=== PATIENT | male | born 1955 | race Caucasian/White ===

== ENCOUNTER 2019-12-08 05:40 | Inpatient (IN) | payer OTHER ==
[~2019-12-08] VITALS: Ht 152.4 cm; Wt 76.4 kg
--- NOTE | ~2019-12-08 | CON ---
[address] [address] CONSULTATION Name: PAMELA VILLARREAL Room: [address] IN M.R.#: [id number] Admission: 12/08/19 Attend Phys: Carole Sy Discharge: Date of : 53 Report #: [id number] THIS REPORT FOR: //name// CC: Carole Mancia This is the consultation obtained by Dr. Hayden for end-stage renal disease and provide dialysis during the hospital stay. HISTORY OF PRESENT ILLNESS: The patient is a 64-year-old gentleman who has end-stage renal disease, he was on hemodialysis at the [facility] under the care of Dr. Lomeli. The patient was admitted today with a chief complaint of hematemesis and then bright red blood per rectum. His blood pressure has remained stable. He denies any abdominal pain, no fevers, no chills, no cough or phlegm. The patient had similar history recently a few months ago and at that time GI workup was essentially negative. We have been consulted to provide his dialysis during this hospital stay. PAST MEDICAL HISTORY: End-stage renal disease, on hemodialysis on a Friday, Friday, Friday schedule; history of diabetes; history of hepatitis C; diskectomy; history of cardiac stenting in the past; defibrillator. He has history of COPD; hypertension; GI bleeds and a left upper arm fistula. HOME MEDICATIONS: Reviewed. He is on PhosLo, Protonix, pravastatin, nitroglycerin, Coreg. PERSONAL, SOCIAL AND FAMILY HISTORY: He denies any significant alcohol intake. No family history of ESRD. No smoking reported. PHYSICAL EXAMINATION: VITAL SIGNS: His blood pressure is 107/71, pulse rate is 87. He is afebrile. LUNGS: Diminished, but clear. GENERAL: He is awake, he is alert, answering all questions appropriately. He has not had any episodes of hematemesis since he came to the hospital. ABDOMEN: Soft, nontender and nondistended. EXTREMITIES: Showed no pedal edema. Left upper arm brachiocephalic fistula is well developed with good bruit and thrills. LABORATORY DATA: White count is 10.5 and hemoglobin is 11.5. Metabolic panel: Potassium is 4.9, BUN 53, creatinine 10.4, calcium 7.2, albumin 2.6. ASSESSMENT: 1. End-stage renal disease. 2. Dialysis on a Friday, Friday, Friday schedule. 3. Diabetes mellitus. 4. History of gastrointestinal bleed with previous history few months ago. 5. History [place] [address] CONSULTATION Name: PAMELA VILLARREAL Room: [address] IN M.R.#: [id number] Admission: 12/08/19 Attend Phys: Carole Sy Discharge: Date of : 53 Report #: [id number] 6. Vascular disease. PLAN: 1. End-stage renal disease. The patient did get a full treatment on Friday. He might be going for an endoscopy today. He is n.p.o. for the same. We will try to time our dialysis around that. 2. However, if we cannot get the patient on time based on his other procedures today, we will dialyze him tomorrow morning. There is no urgent need for dialysis today. 3. Close monitoring of hemoglobin levels. Transfuse as needed. 4. Renal diet. 5. Avoid all nephrotoxic medications. 6. Lower the infusion rate of normal saline to 50 mL an hour and stop at post-endoscopy. Thank you for the consultation. By: 1115 [id number] Myers MD /natalia
[~2019-12-08 05:40] MED LIST: AUGMENTIN 500-1 EACH PO; CARAFATE 1 GM TA1 G1 PO; CARDURA4 MG PO; CARVEDILOL12.5 MG PO; DOXYCYCLINE; DOXYCYCLINE 10100 MG PO; FENTANYL PA25 MCG/HR TRANSDERM; HYDRALAZINE 2525 MG PO; IMDUR 30 MG TAB30 M1 PO; KLOR-CON 1010 MEQ PO; LASIX 40 MG TAB40 M2 PO; NITROGLYCERIN0.4 MG SUBLING; PRAVACHOL20 MG PO; PREDNISONE; PROTONIX40 M1 PO; XANAX 0.25 MG0.25 MG PO
[2019-12-08 05:44] VITALS: BP 114/67
[2019-12-08 06:03] LABS: HEMATOCRIT 33.8 % (42.0-52.0); HEMOGLOBIN 11.5 gm/dL (14.0-18.0); MCV 88.4 fL (80.0-100.0); NUCLEATED RBCS 0 /100WBC; PLATELET COUNT* 132 thou/uL (150-400); RBC 3.82 mil/uL (4.50-6.00); RDW-CV 14.9 % (10.5-14.5); WBC 10.5 thou/uL (4.0-11.0)
[2019-12-08] MEDS ORDERED: CARDIZEM SR 60M60 MG PO (06:14)
[2019-12-08 06:15] LABS: ANION GAP 8 mmol/L (7-16); BUN 53 mg/dL (7-18); CALCIUM 7.2 mg/dL (8.5-10.1); CHLORIDE 97 mmol/L (98-107); CO2 31 mmol/L (21-32); CREATININE 10.4 mg/dL (0.6-1.3); GLUCOSE 189 mg/dL (70-99); POTASSIUM 4.9 mmol/L (3.5-5.1); SODIUM 136 mmol/L (136-145)
[2019-12-08] MEDS ORDERED: CALCIUM ACETAT667 MG PO (06:15)
[2019-12-08 06:17] LABS: INR 1.1; PROTIME 11.2 Seconds (9.20-11.50)
[2019-12-08 06:31] LABS: ALBUMIN 2.6 g/dL (3.4-5.0); ALKALINE PHOSPHATASE 74 U/L (46-116); NT-PRO BRAIN NAT PEPTIDE > 35000 pg/mL (<300); SGOT 8 U/L (15-37); SGPT 16 U/L (30-65); TOTAL BILIRUBIN 0.4 mg/dL (<0.1-1.0); TOTAL PROTEIN 6.9 g/dL (6.4-8.2)
[2019-12-08 06:56] LABS: ABSOLUTE EOSINOPHILS 0.2 thou/uL (0.0-0.7); ABSOLUTE LYMPHOCYTES 1.6 thou/uL (0.8-5.3); ABSOLUTE MONOCYTES 0.4 thou/uL (0.0-1.2); ABSOLUTE NEUTROPHILS 8.3 thou/uL (1.6-8.1); ANISOCYTOSIS 1+; PLATELET ESTIMATE DECREASED
[2019-12-08 06:57] LABS: OVALOCYTES 1+; POIKILOCYTOSIS 1+
[2019-12-08 08:00] VITALS: BP 107/64
[2019-12-08 08:03] VITALS: BP 107/71
--- NOTE | 2019-12-08 10:23 | EKG ---
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[place] : 1955 Requested By: Luz Lindsey Order Number: [id number] MD: Saulo Jacob Measurements Intervals [place] Rate: 89 P: -47 TX: 156 QRS: -69 QRSD: 141 T: 110 QT: 416 QTc: 507 Interpretive Statements Sinus rhythm with mobitz I av block Atrial premature complexes Right bundle branch block LVH with secondary repolarization abnormality Inferior infarct, old Anterior infarct, old Baseline wander in lead(s) V3 Electronically Signed On 12-08-2019 10:22:36 CORPORATE DEVELOPMENT INTERN by Saulo Jacob [email or web address] <ELECTRONICALLY SIGNED> By: Saulo Jacob MD, [facility] 12/08/19 1022 0546 [id number] Saulo Jacob MD, [facility] /EPI
--- NOTE | 2019-12-08 10:58 | NUR ---
CM ASSESSMENT: VISITED WITH PT AND IN ROOM. PT LIVES HOME WITH HIS . INDEPENDENT WITH ALL ADLS,NO DME. DRIVES AND NO FINANCIAL CONCERNS. CM WILL FOLLOW UP IF NEEDED
[2019-12-08 11:31] VITALS: BP 114/54
[2019-12-08 12:48] LABS: HEMATOCRIT 29.1 % (42.0-52.0); HEMOGLOBIN 9.9 gm/dL (14.0-18.0)
--- NOTE | 2019-12-08 14:09 | NUR ---
pt admitted on tele floor from er. report received from er nurse. pt is aox4, sr bbb on monitoring tech. on ra. o2 saturation is 96%. po medication given as ordered. pt refused the cardizem pill stating that he has taken this pill the night before. pt states that he has been vomiting blood and having bloody bowel movement since 0200 am this am. iv fluid ns at 100 cc per hour started as ordered. pt complains of vomiting, iv zofran given. scopalamine patch applied behind right earlobe as ordered. iv protonix started as ordered. call light at reach. pt is up ad gisela. consent for egd completed per pt. gi and renal on board. pt to be dialysed the next day per renal physician. will continue to monitor pt
[2019-12-08 15:40] LABS: HEMATOCRIT 27.4 % (42.0-52.0); HEMOGLOBIN 9.2 gm/dL (14.0-18.0); MCH 29.8 pg (26.0-34.0); MCHC 33.7 g/dL (28.0-37.0); MCV 88.4 fL (80.0-100.0); MPV 9.6 fl. (7.2-11.1); RBC 3.1 mil/uL (4.50-6.00); RDW-CV 14.5 % (10.5-14.5); WBC 9.2 thou/uL (4.0-11.0)
[2019-12-08 15:54] LABS: CALCIUM 7.4 mg/dL (8.5-10.1); CREATININE 11.2 mg/dL (0.6-1.3); POTASSIUM 5.7 mmol/L (3.5-5.1)
--- NOTE | 2019-12-08 16:16 | NUR ---
PT WENT FOR AN EGD THIS AFTERNOON.
[2019-12-08 18:37] VITALS: BP 91/50
--- NOTE | 2019-12-08 18:38 | NUR ---
PT BACK FROM EGD AT 1825 ACCOMPANIED BY PACU NURSE. PT IS AOX4. VS TAKEN. BP 91/50 HR 95. PT PLACED BACK ON SUPPORT SERVICE TECH. PROTONIX DRIP INFUSING ORDERED. IV NS INFUSING. CLEAR LIQUID DIET GIVEN. NO INSULIN PER SLIDING SCALE. PT RESTING IN BED. CALL LIGHT AT REACH. AT BEDSIDE. WILL CONTINUE TO MONITOR
[2019-12-08 20:02] VITALS: BP 97/55
[2019-12-08 20:05] LABS: HEMATOCRIT 25.5 % (42.0-52.0); HEMOGLOBIN 8.7 gm/dL (14.0-18.0)
[2019-12-09] VITALS (7 sets, daily range): BP systolic 98–135; BP diastolic 52–79
[2019-12-09 05:43] LABS: HEMATOCRIT 23.1 % (42.0-52.0); HEMOGLOBIN 7.9 gm/dL (14.0-18.0); MCH 30.1 pg (26.0-34.0); MCHC 34.1 g/dL (28.0-37.0); MCV 88.1 fL (80.0-100.0); MPV 9.4 fl. (7.2-11.1); RBC 2.62 mil/uL (4.50-6.00); RDW-CV 14.9 % (10.5-14.5); WBC 10.2 thou/uL (4.0-11.0)
[2019-12-09 06:09] LABS: ALBUMIN 2.5 g/dL (3.4-5.0); CALCIUM 7.8 mg/dL (8.5-10.1); CREATININE 11.8 mg/dL (0.6-1.3); MAGNESIUM 1.6 mg/dL (1.8-2.4); TOTAL BILIRUBIN 0.4 mg/dL (<0.1-1.0)
--- NOTE | 2019-12-09 08:31 | NUR ---
PT IS ABLE TO COMMUNICATE HIS NEEDS TO STAFF EFFECTIVELY, BUT HAS BEEN VERY TIRED. HE HAS DENIED THE NEED FOR PAIN MEDICATION UP TO THIS TIME. HE IS STILL HAVING SOME BLOODY BMs UP TO THIS TIME. HE IS CURRENTLY FOLLOWING A // SCHEDULE FOR RECEIVING HEMODIALYSIS AND, HE MISSED HAVING A RUN YESTERDAY, IS TENTATIVELY SCHEDULED TO HAVE ONE TODAY. FEELINGS OF NAUSEA HAVE SUBSIDED OVERNIGHT; CURRENTLY ON A CLEAR LIQUID DIET. LIKELY REPEAT EGD ON FRIDAY THIS WEEK.
[2019-12-09 10:09] LABS: HEPATITIS B SURFACE AG Negative (Negative)
--- NOTE | 2019-12-09 10:10 | NUR ---
ASSUMED CARE OF PT THIS AM AROUND 0715- BODY CLEANER IN PLACE ORDERED, TRACING SR- UPON ASSESSMENT PT NOTED TO BE RESTING IN BED, TIRED/WITHDRAWN- PT A&O X4- CONTINENT OF B/B, OLIGURIA NOTED WITH DIALYSIS- SBA WITH TRANSFERS- LCTA, RESP EVEN AND UP-LWLCLJN-NFG, O2 SAT 91% ON LV-SYV-[id number] COUGH NOTED- ABD SOFT/ROUND/NON-TENDER, BS X 4 QUADS- UNKNOWN LAST BM- IV NOTED TO RIGHT FA AND RIGHT HAND INTACT, PROTONIX INFUSSING PRESCIBED- LEFT UE FISTULA NOTED WITH POSTIVE BRUIT/THRILL- DIALYSIS PLANNED FOR THIS SHIFT- CLEAR LIQUIDS IN PLACE ORDERED, BS MONITORED ORDERED-PT DENEIS ANY C/O PAIN- CALL LIGHT AND PERSONAL BELONGINGS WITH IN REACH- HOURLY ROUNDS IN PLACE R/T SAFETY-NEEDS- ALL NEEDS MET AT THIS TIME-WCTM
--- NOTE | 2019-12-09 13:53 | NUR ---
CONTINUE TO FOLLOW, PT GOES TO [facility] FOR DIALYSIS. CALLED AND SPOKE WITH SIM THERE, WILL NEED NOTIFIED AT UT AND FLOW SHEETS/DC INFO FAXED TO THEM. SHE ASKED FOR UPDATE, WILL SEND. PT PLANS TO RETURN HOME AT [facility] [phone] FAX [phone]
--- NOTE | 2019-12-09 14:22 | NUR ---
FAXED CLINICAL UPDATES TO [facility] [phone]; [phone]. CONFIRMED WITH SIM AT [facility] THAT SHE RECEIVED THE UPDATE.
[2019-12-09 16:10] LABS: PCO2 31.7 mmHg (35.0-45.0); PO2 80.7 mmHg (75.0-100.0); pH 7.528 (7.340-7.450)
[2019-12-09 16:53] LABS: HEMATOCRIT 19.2 % (42.0-52.0)
[2019-12-09 16:54] LABS: HEMOGLOBIN 6.6 gm/dL (14.0-18.0)
[2019-12-10 00:02] VITALS: BP 134/74
[2019-12-10 00:30] LABS: HEMATOCRIT 22.1 % (42.0-52.0); HEMOGLOBIN 7.6 gm/dL (14.0-18.0)
[2019-12-10 04:32] VITALS: BP 143/78
[2019-12-10 05:24] LABS: HEMATOCRIT 21.7 % (42.0-52.0); HEMOGLOBIN 7.5 gm/dL (14.0-18.0); MCH 30.1 pg (26.0-34.0); MCHC 34.6 g/dL (28.0-37.0); MCV 87.2 fL (80.0-100.0); MPV 8.8 fl. (7.2-11.1); RBC 2.49 mil/uL (4.50-6.00); RDW-CV 14.5 % (10.5-14.5); WBC 6.3 thou/uL (4.0-11.0)
[2019-12-10 05:33] LABS: ALBUMIN 2.5 g/dL (3.4-5.0); CALCIUM 7.7 mg/dL (8.5-10.1); POTASSIUM 4.4 mmol/L (3.5-5.1)
--- NOTE | 2019-12-10 05:37 | NUR ---
PT IS ABLE TO COMMUNICATE HIS NEEDS TO STAFF WITH MINOR DIFFICULTY; HE HAS BEEN SOMEWHAT CONFUSED AT TIMES DURING THIS SHIFT. HE HAS BEEN MORE CONVERSANT AND ALERT AFTER RECEIVING BLOOD. AT LAST CHECK, HGB WAS ABOVE 7.0, SO PT HAS RECEIVED ONE UNIT OF BLOOD THIS SHIFT, UP TO THIS TIME. HE HAS BEEN NPO SINCE MIDNIGHT FOR A POSSIBLE EGD LATER TODAY.
[2019-12-10 05:49] LABS: CALCIUM 7.7 mg/dL (8.5-10.1); MAGNESIUM 1.6 mg/dL (1.8-2.4); POTASSIUM 4.3 mmol/L (3.5-5.1)
[2019-12-10 05:52] LABS: CREATININE 7.8 mg/dL (0.6-1.3)
[2019-12-10 05:53] LABS: CREATININE 7.9 mg/dL (0.6-1.3)
[2019-12-10 08:00] VITALS: BP 125/68
--- NOTE | 2019-12-10 10:32 | NUR ---
ASSUMED PT CARE REPORT RECEIVED FROM NURSE PT IS AOX4 , AT BEDSIDE. PT VS ARE STABLE. ON RA. O2 SATURATION IS 97%. RIGHT FOREARM IV LINE PATENT. PROTONIX INFUSING AT 20 CC PER HOUR ORDERED. NEW BAG REPLACED THIS MORNING. SCOPALAMINE PATCH IN PLACE BEHIND RIGHT EAR. PT DENIES PAIN. NO BOWEL MOVEMENT THIS AM. PT UP WITH STAND BY ASSIST TO THE RESTROOM TO URINATE. HGB AT 7.5 THIS AM. NO ACTIVE BLLEDING NOTICED. ACCUCHECK. NO INSULIN. PT IS NPO . MORNING MEDICINE HELD PER NURSE. PT IS TO HAVE EGD DONE THIS AM. EGD CONSENT SIGNED AT BEDSIDE. PT DAUGHTER IS THE DPOA AND FILLED DPOA FORM AT BEDSIDE. FORM PLACED IN CHART. [facility] BY OR NURSE. WILL CONTINUE TO MONITOR
--- NOTE | 2019-12-10 10:48 | NUR ---
DIALYSIS NURSE CALLED WHILE PT OUT FOR EGD. DIALYSIS NURSE NOTIFIED THAT PT IS HAVING EGD DONE NOW AND WILL BE CONTACTED ONCE PT IS DONE
--- NOTE | 2019-12-10 11:08 | EKG ---
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1955 Requested By: Nirmal Cheng Order Number: [id number] MD: Saulo Jacob Measurements Intervals [place] Rate: 94 P: 0 UT: 144 QRS: -62 QRSD: 145 T: 95 QT: 411 QTc: 515 Interpretive Statements atrial fibrillation Right bundle branch block LVH with secondary repolarization abnormality Inferior infarct, old Baseline wander in lead(s) V2 Compared to ECG 12/08/2019 05:46:16 atrial fibrillation noted Second-degree AV block, Mobitz type I (Wenckebach) no longer present Myocardial infarct finding still present Electronically Signed On 12-10-2019 11:07:42 CAR MOVER by Saulo Jacob [email or web address] <ELECTRONICALLY SIGNED> By: Saulo Jacob MD, FAC 12/10/19 1107 1609 1609 Saulo Jacob MD, [facility] /EPI
[2019-12-10 11:55] VITALS: BP 125/68
--- NOTE | 2019-12-10 15:08 | NUR ---
CONTINUE TO FOLLOW, NOTARIZED DPOA TODAY, ON CHART. AGENT IS DTR ONLY. COPIES GIVEN TO HER. NO DC TODAY. WILL NEED TO CONTACT [facility] AND FAX DC INFO WITH MEDS AND DIALYSIS FLOW SHEETS TO THEM. [facility] [phone] FAX [phone]
--- NOTE | 2019-12-10 15:27 | NUR ---
pt went straight from PACU to dialysis. pt got to eat lunch. no insulin needed per sliding scale. see chart for accucheck result. pt finished dialysis at 1520. report received from dialysis nurse who reports stable bp of 120/ 65 at the end of dialysis treatment. pt presently in his room sitting at bedside. no complaint. protonix drip infusing as ordered. call light at reach. will continue to monitor
[2019-12-10 20:00] VITALS: BP 127/60
[2019-12-11] VITALS (8 sets, daily range): BP systolic 111–135; BP diastolic 57–72
[2019-12-11 05:08] LABS: HEMATOCRIT 20.2 % (42.0-52.0)
[2019-12-11 05:20] LABS: CALCIUM 7.1 mg/dL (8.5-10.1); MAGNESIUM 1.7 mg/dL (1.8-2.4); POTASSIUM 3.8 mmol/L (3.5-5.1)
--- NOTE | 2019-12-11 05:41 | NUR ---
VITALS STABLE, AFEBRILE. NO BM/N/V. DENIES PAIN. PT SLEPT THROUGH THE NIGHT. CALL LIGHT WITHIN REACH. WILL CONTINUE MONITORING.
[2019-12-11 05:51] LABS: CREATININE 6.6 mg/dL (0.6-1.3)
[2019-12-11] MEDS ORDERED: IRON325 M1 PO (09:39)
[2019-12-11] MEDS ORDERED: PROTONIX40 M1 PO (09:39)
[2019-12-11] MEDS ORDERED: COLACE100 MG PO (09:39)
--- NOTE | 2019-12-11 11:25 | NUR ---
ASSUMED PT CARE REPORT RECEIVED FORM NURSE. PT IS AOX4. ON RA. O2 SATURATION IS 95%. VSS. HGB 7.0. ORDER TO INFUSE BLOOD IF HGB LESS 7.0. WILL AWAIT FOR H&H RESULT THIS AM. PATIENT CURRENTLY IN ROOM IN CHAIR. NO COMPLAINT. DENIES PAIN, N.V. MORNING MEDICATIONS GIVEN. TRACING AFIB ON HOME HEALTH ADMINISTRATOR. HEART RATE CONTROLLED IN THE 90s. PT HAD AN EPISODE OF 16 RUNS OF VTACH THIS AM AT SHIFT CHANGE. PT REMAINS ASYMPTOMATIC DURING THE EPISODE. HOSPITALIST MADE AWARE. ACCUCHECK BEFORE BREAKFAST. NO INSULIN GIVEN. CALL LIGHT AT REACH. WILL CONTINUE TO MONITOR PT
[2019-12-11 12:18] LABS: HEMATOCRIT 22.3 % (42.0-52.0); HEMOGLOBIN 7.6 gm/dL (14.0-18.0)
--- NOTE | 2019-12-11 12:43 | NUR ---
HGB 7.6 PT WILL BE ABLE TO DISCHARGE PER DR ORDER SINCE HGB IS NOT BELOW 7.0.
[2019-12-11 14:09] LABS: HCV QUANT BY PCR 9230 IU/mL (())
--- NOTE | 2019-12-11 14:28 | NUR ---
PT LEFT FLOOR AT 1400 ACCOMPANIED BY NURSING STAFF AND . ON RA. DISCHARGE INSTRUCTION GIVEN. PT INSTRUCTED TO TAKE PROTONIX BID INSTEAD OF DAILY. PT ALSO INSTRUCTED TO AVOID TAKING NSAIDS AND ASPIRIN. IV LINE REMOVED. HEART MONITOR RETRIEVED.
--- NOTE | 2019-12-12 09:28 | CON ---
[address] [address] CONSULTATION Name: PHILPAMELA Room: [address] IN M.R.#: [id number] Admission: 12/08/19 Attend Phys: Carole Sy Discharge: 12/11/19 Date of : 53 Report #: [id number] THIS REPORT FOR: //name// CC: Carole Mancia DICTATED BY: Salina GUEVARA DATE OF SERVICE: 12/08/2019 The patient does not have a PCP. Please note at the time of this dictation, the patient was seen and physically examined by myself. REASON FOR CONSULTATION: Hematemesis and melanotic stool. HISTORY OF PRESENT ILLNESS: This is a pleasant 64-year-old male who is well known to us who recently underwent a. Dictation Ends Here. <ELECTRONICALLY SIGNED> By: Deven Meier DO 12/12/19 0928 1204 0010Deven Meier DO /nt
--- NOTE | 2019-12-12 09:28 | CON ---
[address] [address] CONSULTATION Name: VILLARREALPAMELA Room: [address] IN M.R.#: [id number] Admission: 12/08/19 Attend Phys: Carole Sy Discharge: 12/11/19 Date of : 53 Report #: [id number] THIS REPORT FOR: //name// CC: Carole Mancia DICTATED BY: Salina Glover [facility] DATE OF SERVICE: 12/08/2019 PRIMARY CARE PHYSICIAN: The patient does not have a PCP. Please note at the time of this dictation, the patient was seen and physically examined by myself. REASON FOR CONSULTATION: Hematemesis and melanotic stool. HISTORY OF PRESENT ILLNESS: This is a pleasant 64-year-old male whom we saw back in August of last year at [facility] for similar reasons. At that time, he underwent an EGD by Dr. Cardenas on 09/23/2019 noting a medium hiatal hernia. He had a segmental moderate inflammation in the gastric antrum. Biopsies were negative for H. pylori or any dysplasia. He had a duodenal deformity that was noted that showed focal fibrosis and Trever gland hyperplasia. At that time, he was placed on Protonix daily and he was scheduled to have a followup EGD with Dr. Cardenas but insurance would not pay for it. Therefore, he canceled it. The patient states that over the weekend, he started feeling kind of having feeling like he was bloated, a little nauseated. His grandson had had the flu and he thought that maybe what he was getting until this morning early, he started having this nausea and vomiting and had bloody stools, prompting him to come in for further evaluation. The patient has never had a colonoscopy done either. ALLERGIES: No known drug allergies. MEDICATIONS: From home include diltiazem, calcium, Protonix, nitroglycerin, pravastatin and carvedilol. PAST MEDICAL HISTORY: Diabetes, diagnosed with hep C back in 2002. He did have a liver biopsy done by Dr. Freeman at that time and he had started treatment with PEG interferon. He was doing well, but due to his work schedule he was never able to fully complete his treatment program. He has COPD, hypertension and history of GI bleed. PAST SURGICAL HISTORY: Diskectomy he is now on end-stage renal disease, dialysis Friday, [place] [address] CONSULTATION Name: PAMELA VILLARREAL Room: [address]#: [id number] Admission: 12/08/19 Attend Phys: Carloe alexander Absaraka Discharge: 12/11/19 Date of : 53 Report #: [id number] PAST SURGICAL HISTORY: He has had cardiac stents placed, defibrillator, he has got a left arm fistula and a cholecystectomy done in the past. FAMILY HISTORY: Noncontributory. SOCIAL HISTORY: Denies any recreational drug use. Denies any tobacco use or illegal drug use. Unclear as to HCV contraction. REVIEW OF SYSTEMS: Twelve-point review of systems is essentially negative except what is mentioned in the HPI. PHYSICAL EXAMINATION: VITAL SIGNS: Temperature 36.4, pulse 87, respirations 16, blood pressure 107/71. HEART: Regular rate and rhythm. LUNGS: Diminished, but clear. ABDOMEN: Soft, positive bowel sounds in all 4 quadrants with some epigastric tenderness noted to palpation. LABORATORY DATA: Hemoglobin is 11.5, white count is 10.5, platelets 132. PT is 11.2, INR is 1.1, BUN is 53, creatinine is 10.4. His LFTs are completely normal. His BNP was greater than 35,000. Chest x-ray essentially negative. IMPRESSION: 1. Hematemesis. 2. Melanotic stool. 3. Epigastric pain. 4. HCV treated, started treatment [place] [address] Freeman. 5. Thrombocytopenia. 6. End-stage renal disease, dialysis Friday, Friday and Friday. 7. Coronary artery disease with defibrillator. PLAN: 1. EGD today with Dr. Meier later. 2. Protonix drip to start. 3. Scopolamine patch. 4. Acute hepatitis panel with HCV PCR RNA. 5. Ultrasound with Dopplers. 6. Further recommendations to be made once the above have all been noted. Thank you for allowing us to participate in this patient's care. Please do not hesitate to call with any questions in regard to this consult. <ELECTRONICALLY SIGNED> By: Deven Meier DO 12/12/19 0928 1211 0104Deven Meier DO /nt
== END 2019-12-11 14:12 | disposition home or self-care (01) | DRG 377 ==
LOC: M.ERS 05:40 → M.2W 06:30 → M.TBA-ER 06:30 → M.2W 07:50
PROVIDERS: Anesthesiology; Emergency Medicine; Internal Medicine; Internal Medicine Nephrology; Nurse Practitioner Adult Health; ADMIT Family Medicine
PROC: 5A1D70Z Performance of Urinary Filtration, Intermittent, Less than 6 Hours Per Day (ICD-10-PCS; principal; 2019-12-08)
PROC: 0DC68ZZ Extirpation of Matter from Stomach, Via Natural or Artificial Opening Endoscopic (ICD-10-PCS; 2019-12-08)
PROC: 5A1D70Z Performance of Urinary Filtration, Intermittent, Less than 6 Hours Per Day (ICD-10-PCS; 2019-12-09)
PROC: 30233N1 Transfusion of Nonautologous Red Blood Cells into Peripheral Vein, Percutaneous Approach (ICD-10-PCS; 2019-12-09)
PROC: 0DJ08ZZ Inspection of Upper Intestinal Tract, Via Natural or Artificial Opening Endoscopic (ICD-10-PCS; 2019-12-10)
PROC: 5A1D70Z Performance of Urinary Filtration, Intermittent, Less than 6 Hours Per Day (ICD-10-PCS; 2019-12-10)
DX: K25.4 Chronic or unspecified gastric ulcer with hemorrhage (principal); N18.6 End stage renal disease; G92 Toxic encephalopathy; K92.0 Hematemesis; E11.22 Type 2 diabetes mellitus with diabetic chronic kidney disease; J44.9 Chronic obstructive pulmonary disease, unspecified; I10 Essential (primary) hypertension; I25.10 Atherosclerotic heart disease of native coronary artery without angina pectoris; I99.9 Unspecified disorder of circulatory system; D69.6 Thrombocytopenia, unspecified; F17.210 Nicotine dependence, cigarettes, uncomplicated; K70.30 Alcoholic cirrhosis of liver without ascites; B19.20 Unspecified viral hepatitis C without hepatic coma; G89.29 Other chronic pain; E87.8 Other disorders of electrolyte and fluid balance, not elsewhere classified; Z95.5 Presence of coronary angioplasty implant and graft; Z79.899 Other long term (current) drug therapy

== ENCOUNTER 2021-05-07 14:03 | Inpatient (IN) | payer OTHER ==
[~2021-05-07] VITALS: Ht 152.4 cm; Wt 76.4 kg
[~2021-05-07 14:03] MED LIST changes: +ALBUTEROL2.5 MG/3 M INH; +CALCIUM ACETAT667 MG PO; +CARDIZEM SR 60M60 MG PO; +CARVEDILOL6.25 M1 PO; +COLACE100 MG PO; +DILTIAZEM 24HR120 M1 PO; +IRON325 M1 PO; +OXYGEN MISCELL
[2021-05-07 14:19] VITALS: BP 92/57
[2021-05-07 15:40] LABS: EOSINOPHILS 0.5 %; HEMOGLOBIN 10.1 gm/dL (14.0-18.0); NUCLEATED RBCS 0 /100WBC; PLATELET COUNT* 86 thou/uL (150-400)
[2021-05-07 15:49] LABS: ABSOLUTE BASOPHILS 0.1 thou/uL (0.0-0.2); ABSOLUTE LYMPHOCYTES 1.7 thou/uL (0.8-5.3); ABSOLUTE MONOCYTES 0.5 thou/uL (0.0-1.2); ABSOLUTE NEUTROPHILS 4.6 thou/uL (1.6-8.1); BASOPHILS 0.8 %; HEMATOCRIT 30.3 % (42.0-52.0); MCH 28.7 pg (26.0-34.0); MCHC 33.3 g/dL (28.0-37.0); MCV 86.2 fL (80.0-100.0); MONOCYTES 7.8 %; MPV 9.3 fl. (7.2-11.1); POLYS 65.9 %; RBC 3.51 mil/uL (4.50-6.00); RDW-CV 20.8 % (10.5-14.5)
[2021-05-07 15:50] LABS: ANION GAP 7 mmol/L (7-16); BUN 24 mg/dL (7-18); CALCIUM 8.3 mg/dL (8.5-10.1); CHLORIDE 101 mmol/L (98-107); CO2 30 mmol/L (21-32); CREATININE 7.7 mg/dL (0.6-1.3); GLUCOSE 137 mg/dL (70-99); SODIUM 138 mmol/L (136-145)
[2021-05-07 15:53] LABS: POTASSIUM 2.9 mmol/L (3.5-5.1)
[2021-05-07 15:54] LABS: ALBUMIN 2.2 g/dL (3.4-5.0); ALKALINE PHOSPHATASE 119 U/L (46-116); SGOT 18 U/L (15-37); SGPT < 6 U/L (30-65); TOTAL BILIRUBIN 0.7 mg/dL (<0.1-1.0); TOTAL PROTEIN 6.2 g/dL (6.4-8.2)
[2021-05-07 16:43] LABS: PLATELET ESTIMATE DECREASED
[2021-05-07 16:44] LABS: ANISOCYTOSIS 1+; MICROCYTES 1+
[2021-05-07 20:42] VITALS: BP 100/62
[2021-05-07 21:26] VITALS: BP 100/62
[2021-05-07 21:35] VITALS: BP 104/62
[2021-05-07] MEDS ORDERED: ELIQUIS2.5 MG PO (22:23)
[2021-05-07] MEDS ORDERED: AMIODARONE HCL400 MG (22:24)
[2021-05-07] MEDS ORDERED: PLAVIX 75 MG TA75 MG (22:26)
[2021-05-08 04:30] VITALS: BP 82/41
[2021-05-08 04:45] LABS: ABSOLUTE EOSINOPHILS 0.1 thou/uL (0.0-0.7); ABSOLUTE MONOCYTES 0.4 thou/uL (0.0-1.2); ABSOLUTE NEUTROPHILS 2.9 thou/uL (1.6-8.1); BASOPHILS 0.4 %; EOSINOPHILS 1.2 %; HEMATOCRIT 25.8 % (42.0-52.0); HEMOGLOBIN 8.4 gm/dL (14.0-18.0); LYMPHOCYTES 37.3 %; MCH 27.9 pg (26.0-34.0); MCHC 32.3 g/dL (28.0-37.0); MCV 86.2 fL (80.0-100.0); MONOCYTES 6.9 %; MPV 9.2 fl. (7.2-11.1); NUCLEATED RBCS 0 /100WBC; PLATELET COUNT* 72 thou/uL (150-400); POLYS 54.2 %; RBC 2.99 mil/uL (4.50-6.00); RDW-CV 20.9 % (10.5-14.5); WBC 5.4 thou/uL (4.0-11.0)
[2021-05-08 04:51] LABS: CALCIUM 7.7 mg/dL (8.5-10.1); CREATININE 8.2 mg/dL (0.6-1.3); POTASSIUM 3.1 mmol/L (3.5-5.1)
[2021-05-08 05:47] LABS: PLATELET ESTIMATE DECREASED
[2021-05-08 05:48] LABS: ANISOCYTOSIS 1+; POIKILOCYTOSIS 1+
[2021-05-08 08:00] VITALS: BP 88/49
[2021-05-08 13:24] VITALS: BP 88/54
[2021-05-08 17:33] VITALS: BP 104/61
[2021-05-08 18:28] VITALS: BP 88/57
[2021-05-08 20:00] VITALS: BP 84/47
[2021-05-09] VITALS: BP 91/53
[2021-05-09 02:06] LABS: HEPATITIS B SURFACE AG Negative (Negative)
[2021-05-09 04:00] VITALS: BP 95/60
[2021-05-09 04:58] LABS: HEMATOCRIT 25.9 % (42.0-52.0); HEMOGLOBIN 8.6 gm/dL (14.0-18.0); MCH 28.6 pg (26.0-34.0); MCHC 33.1 g/dL (28.0-37.0); MCV 86.4 fL (80.0-100.0); MPV 9.2 fl. (7.2-11.1); RDW-CV 20.8 % (10.5-14.5); WBC 5.3 thou/uL (4.0-11.0)
[2021-05-09 04:59] LABS: CALCIUM 7.3 mg/dL (8.5-10.1); POTASSIUM 3.3 mmol/L (3.5-5.1)
[2021-05-09 05:29] LABS: CREATININE 5.5 mg/dL (0.6-1.3)
[2021-05-09 07:40] VITALS: BP 99/66
[2021-05-09 12:19] VITALS: BP 76/45
[2021-05-09 16:11] VITALS: BP 96/62
[2021-05-09 19:25] VITALS: BP 83/45
[2021-05-10] VITALS: BP 115/51
[2021-05-10 04:00] VITALS: BP 111/63
[2021-05-10 04:37] LABS: HEMATOCRIT 29.3 % (42.0-52.0); HEMOGLOBIN 9.7 gm/dL (14.0-18.0); MCH 28.8 pg (26.0-34.0); MCHC 33.2 g/dL (28.0-37.0); MCV 86.6 fL (80.0-100.0); MPV 9.1 fl. (7.2-11.1); RBC 3.38 mil/uL (4.50-6.00); RDW-CV 20.5 % (10.5-14.5); WBC 8.3 thou/uL (4.0-11.0)
[2021-05-10 05:20] LABS: CALCIUM 7.5 mg/dL (8.5-10.1); POTASSIUM 3.3 mmol/L (3.5-5.1)
[2021-05-10 08:00] VITALS: BP 100/64
[2021-05-10] MEDS ORDERED: CARDIZEM CD120 MG PO (10:57)
[2021-05-10 12:00] VITALS: BP 107/60
--- NOTE | 2021-05-12 12:38 | CON ---
[address] [address] CONSULTATION Name: PAMELA VILLARREAL Room: [address] IN .R.#: [id number] Admission: 05/07/21 Attend Phys: Wong Eduardo MD Discharge: 05/10/21 Date of : 53 Report #: [id number] THIS REPORT FOR: cc: [facility] - Clinic physician unknown [facility] - Clinic physician unknown Justin Coe MD ~ DOC #: [id number] Justin Coe MD DATE OF CONSULTATION: 05/08/2021 REQUESTING PHYSICIAN: Wong Eduardo MD REASON FOR CONSULTATION: Assistance in providing dialysis. HISTORY OF PRESENT ILLNESS: The patient is a 65-year-old man well known to us. He was at [facility] for a long time. He usually does dialysis on Friday, Friday, Friday schedule. He missed his dialysis on Friday. Last dialysis was on Friday, comes from the correction because he is unable to take care of himself. PAST MEDICAL HISTORY: 1. End-stage renal disease. 2. Failure to thrive. 3. Peripheral artery disease. 4. History of anemia. 5. Peptic ulcer disease. 6. He also has history of diabetes mellitus type 2. 7. Hepatitis C. 8. Liver cirrhosis. 9. Coronary artery disease. SOCIAL HISTORY: No current tobacco or alcohol abuse. FAMILY HISTORY: No renal disease. REVIEW OF SYSTEMS: Positive for overall weakness, low energy level. PHYSICAL EXAMINATION: GENERAL: Awake, alert, oriented. VITAL SIGNS: Reviewed. NECK: Supple. LUNGS: Decreased air movements. CARDIOVASCULAR: Regular rate. ABDOMEN: Soft. EXTREMITIES: Lower extremities, no edema. He has left upper arm AV fistula. [address] [address] CONSULTATION Name: VILLARREALPAMELA Kari Room: [address]#: [id number] Admission: 05/07/21 Attend Phys: Wong Eduardo MD Discharge: 05/10/21 Date of : 53 Report #: [id number] ASSESSMENT: 1. End-stage renal disease. 2. Noncompliance with his dialysis prescription, usually stays no longer than two and a half hours in dialysis, which is not enough for adequate dialysis. 3. Diabetes mellitus type 2. 4. Coronary artery disease. 5. Failure to thrive. 6. Hepatitis C. 7. Liver cirrhosis. PLAN: Dialysis today and then again tomorrow. He needs the correction placement. Unfortunately, his overall quality of life is very poor. 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 Justin Coe MD KAMILLE <ELECTRONICALLY SIGNED> By: Justin Coe MD 05/12/21 1238 1012 [id number] roselia Gan
== END 2021-05-10 14:55 | DRG 682 ==
LOC: M.ERS 14:03 → M.TBA-ER 16:53 → M.2W 16:53
PROVIDERS: Family Medicine; Nurse Practitioner Family; ADMIT Internal Medicine; ATTEND Internal Medicine
DX: I12.0 Hypertensive chronic kidney disease with stage 5 chronic kidney disease or end stage renal disease (principal); N18.6 End stage renal disease; E43 Unspecified severe protein-calorie malnutrition; R62.7 Adult failure to thrive; K74.60 Unspecified cirrhosis of liver; Z20.822 Contact with and (suspected) exposure to COVID-19; J44.9 Chronic obstructive pulmonary disease, unspecified; E87.6 Hypokalemia; L89.91 Pressure ulcer of unspecified site, stage 1; E11.51 Type 2 diabetes mellitus with diabetic peripheral angiopathy without gangrene; I25.10 Atherosclerotic heart disease of native coronary artery without angina pectoris; B19.20 Unspecified viral hepatitis C without hepatic coma; Z91.15 Patient's noncompliance with renal dialysis; Z89.511 Acquired absence of right leg below knee; Z95.5 Presence of coronary angioplasty implant and graft; Z87.11 Personal history of peptic ulcer disease; Z91.14 Patient's other noncompliance with medication regimen; Z79.899 Other long term (current) drug therapy; Z68.32 Body mass index [BMI] 32.0-32.9, adult